=== PATIENT | male | born 1970 | race Caucasian/White ===

== ENCOUNTER 2019-01-02 01:56 | Emergency (ER) | payer MEDICAID ==
[2019-01-02] MEDS ORDERED: CEFTRIAXONE INJ 250 MG VIAL IM ONE (02:01)
[2019-01-02] MEDS ORDERED: AZITHROMYCIN 250 MG TABLET PO ONE (02:02)
--- NOTE | 2019-01-02 02:06 | ER Document Report ---
HPI - HPI Patient complains to provider of: dysuria Time Seen by Provider: 01/02/19 02:01 Context: Pt. is a 48 yo male presents the emergency department with dysuria. States a few days ago he had one episode of dysuria but that has since ceased. States his girlfriend is in the emergency department because she has recurrent sore throats. I have discussed with him potential that he is passing gonorrhea [id number]-mxq-mzpzs between him and his partner. Patient is wishing for gonorrhea and Chlamydia testing at this time. Patient's denying any testicular pain, swelling, penile discharge. Past Medical History - General Information source: Patient - Social History Smoking Status: Unknown if Ever Smoked Family History: Reviewed & Not Pertinent - Past Medical History Cardiac Medical History: Denies: Hx Coronary Artery Disease, Hx Heart Attack, Hx Hypertension Pulmonary Medical History: Denies: Hx Asthma, Hx Bronchitis, Hx COPD, Hx Pneumonia Neurological Medical History: Denies: Hx Cerebrovascular Accident, Hx Seizures Renal/ Medical History: Denies: Hx Peritoneal Dialysis Musculoskeletal Medical History: Denies Hx Arthritis Psychiatric Medical History: Reports: Hx Depression Past Surgical History: Reports: Hx Orthopedic Surgery - hip - Immunizations Hx Diphtheria, Pertussis, Tetanus Vaccination: Yes - "Im up to date on my Tetanus" Vertical Provider Document - CONSTITUTIONAL Agree With Documented VS: Yes Notes: GENERAL: Alert, interacts well. No acute distress. HEAD: Normocephalic, atraumatic. EYES: Pupils equal, round, and reactive to light. Extraocular movements intact. ENT: Oral mucosa moist, tongue midline. NECK: Full range of motion. Supple. Trachea midline. LUNGS: Clear to auscultation bilaterally, no wheezes, rales, or rhonchi. No respiratory distress. HEART: Regular rate and rhythm. No murmur ABDOMEN: Soft, non-tender. Non-distended. Bowel sounds present in all 4 quadrants. EXTREMITIES: Moves all 4 extremities spontaneously. No edema, normal radial and dorsalis pedis pulses bilaterally. No cyanosis. BACK: no cervical, thoracic, lumbar midline tenderness. No saddle anesthesia, normal distal neurovascular exam. NEUROLOGICAL: Alert and oriented x3. Normal speech. cranial nerves II through XII grossly intact PSYCH: Normal affect, normal mood. SKIN: Warm, dry, normal turgor. No rashes or lesions noted. Genitalia: Ignacio Candelario RN, bilateral testicles nonerythematous, nonswollen. No active discharge noted at the meatus. - INFECTION CONTROL TRAVEL OUTSIDE OF THE [place] IN LAST 30 DAYS: No Course - Re-evaluation Re-evalutation: 01/02/19 02:04 Patient was prophylactically treated for gonorrhea and chlamydia in the emergency department. Discussed close follow-up with primary care provider and [facility] for testing results. Patient voices understanding, stable for discharge. Discharge - Discharge Clinical Impression: Dysuria Condition: Stable Disposition: HOME, SELF-CARE Instructions: Chlamydia ([facility]), Gonorrhea ([facility]) Additional Instructions: As we discussed you have been seen and treated in the emergency department for pain while urinating. Your gonorrhea and Chlamydia testing takes hours to come back so we will not keep you in the emergency department. We have prophylactically treated you with 2 different antibiotics. Please make sure you follow-up with your primary care provider in the health district for continued care. Please return to the emergency room for any concerns. Referrals: ONOFRE PICKERING PA-C [NO LOCAL MD] - Follow up as needed [facility] [NO LOCAL MD] - Follow up as needed
[2019-01-02 02:33] VITALS: BP 150/79
[2019-01-02 03:04] LABS: APPEARANCE,URINE CLEAR; BILIRUBIN,URINE NEGATIVE (NEGATIVE); COLOR,URINE STRAW; GLUCOSE, URINE NEGATIVE (NEGATIVE); KETONES,URINE NEGATIVE (NEGATIVE); LEUKOCYTE ESTERASE,URINE NEGATIVE (NEGATIVE); NITRITE,URINE NEGATIVE (NEGATIVE); PROTEIN,URINE NEGATIVE (NEGATIVE); URINE SPECIFIC GRAVITY 1.003; UROBILINOGEN,URINE NEGATIVE mg/dL (<2.0)
[2019-01-02 04:36] LABS: CHLAM PCR NOT DETECTED (NOT DETECT)
== END 2019-01-02 02:42 | disposition home or self-care (01) ==
LOC: ER 01:56
DX: R30.0 Dysuria (principal); Z20.2 Contact with and (suspected) exposure to infections with a predominantly sexual mode of transmission
CPT/HCPCS: 99283; 96372; 87086; 81001; 87491; 87591; Q0144; J0696

== ENCOUNTER 2020-05-27 12:05 | Day surgery (SDC) | payer MEDICAID ==
[~2020-05-27 12:05] MED LIST: ACETAMINOPHEN 1,000 MG/100 ML RTUPB IV PRN; IBUPROFEN 800 MG in NORMAL SALINE 250 ML IV PRN; METRONIDAZOLE 500 MG/NS RTU 500 MG/100 ML RTUPB IV PRN
[2020-05-27] MEDS ORDERED: ACETAMINOPHEN 1,000 MG/100 ML RTUPB IV ONE (12:56)
[2020-05-27] MEDS ORDERED: METRONIDAZOLE 500 MG/NS RTU 500 MG/100 ML RTUPB IV ONE (12:57)
[2020-05-27 13:49] LABS: HEMATOCRIT 44.2 % (37.9-51.0); HEMOGLOBIN 15.4 g/dL (13.5-17.0); MEAN CORPUSCULAR HGB CONC 34.8 g/dL (32.0-36.0); MEAN CORPUSCULAR VOLUME 86 fl (80-97); PLATELET COUNT 162 10^3/uL (150-450); RED BLOOD COUNT 5.12 10^6/uL (4.35-5.55); RED CELL DISTRIBUTION WIDTH 13.6 % (11.5-14.0); WHITE BLOOD COUNT 9.7 10^3/uL (4.0-10.5)
[2020-05-27 14:17] LABS: ANION GAP 9 (5-19); BLOOD UREA NITROGEN 12 mg/dL (7-20); CALCIUM 9.3 mg/dL (8.4-10.2); CARBON DIOXIDE 28 mmol/L (22-30); CHLORIDE 103 mmol/L (98-107); GLUCOSE 90 mg/dL (75-110); POTASSIUM 4.4 mmol/L (3.6-5.0)
[2020-05-27] MEDS ORDERED: FENTANYL CITRATE INJ/PF 250 MCG/5 ML AMPULE ONE (14:32)
[2020-05-27] MEDS ORDERED: MIDAZOLAM 2 MG/2 ML INJ ONE (14:32)
[2020-05-27] MEDS ORDERED: EPHEDRINE SULFATE INJ 50 MG/1 ML AMPULE ONE (14:33)
[2020-05-27] MEDS ORDERED: PROPOFOL INJ 200 MG/20 ML VIAL IV ONE (14:33)
[2020-05-27] MEDS ORDERED: SUGAMMADEX SODIUM 200 MG/2 ML SDV IV ONE (14:33)
[2020-05-27] MEDS ORDERED: DEXAMETHASONE SOD PHOSPHATE INJ 4 MG/1 ML VIAL ONE (14:36)
[2020-05-27] MEDS ORDERED: SUCCINYLCHOLINE CHLORIDE INJ 200 MG/10 ML VIAL ONE (14:36)
[2020-05-27] MEDS ORDERED: ROCURONIUM BROMIDE INJ 50 MG/5 ML VIAL IV ONE (14:36)
[2020-05-27] MEDS ORDERED: METOCLOPRAMIDE HCL INJ/PF 10 MG/2 ML SDV ONE (14:36)
[2020-05-27] MEDS ORDERED: ONDANSETRON HCL INJ/PF 4 MG/2 ML SDV ONE (14:36)
[2020-05-27] MEDS ORDERED: LIDOCAINE 2% JELLY 30 ML TUBE ONE (14:41)
[2020-05-27] MEDS ORDERED: BACITRACIN ZINC OINTMENT 15 GM ONE (14:41)
[2020-05-27] MEDS ORDERED: BUPIVACAINE INJ/PF LIPOSOME/PF 266 MG/20 ML SDV ONE (14:41)
--- NOTE | 2020-05-27 15:14 | EKG REPORT ---
SEVERITY:- NORMAL ECG - SINUS RHYTHM : Confirmed by: Keena Brooks MD 27-May-2020 15:13:17
[2020-05-27] MEDS ORDERED: MEPERIDINE HCL/PF INJ 25 MG/1 ML DISP.SYRIN IV PRN (15:26)
[2020-05-27] MEDS ORDERED: PROMETHAZINE HCL INJ 25 MG/1 ML VIAL IV PRN ×2 (15:26)
[2020-05-27] MEDS ORDERED: FENTANYL CITRATE INJ/PF 100 MCG/2 ML AMPUL IV PRN ×3 (15:26)
[2020-05-27] MEDS ORDERED: MORPHINE SULFATE 10 MG/ML INJ IV PRN (15:26)
[2020-05-27] MEDS ORDERED: DIPHENHYDRAMINE HCL 50 MG/ML VIAL IV PRN (15:26)
[2020-05-27] MEDS ORDERED: OXYCODONE-ACETAMINOPHEN 5-325 MG TABLET PO PRN ×2 (15:26)
--- NOTE | 2020-05-27 16:00 | Discharge Summary ---
Discharge Summary (SDC) - Discharge Final Diagnosis: #1 infected sebaceous cyst of the perianal region. 2. 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 Diet as tolerated. Activity: Nonstrenuous. Follow-up with [facility] in 7 to 10 days. [place] 10/325 mg p.o. every 6 hours as needed for pain. Ibuprofen 800 mg p.o. 3 times daily with meals. 5% lidocaine ointment/cream, apply to rectum 3 times daily. Neosporin ointment (mufr-xku-rhwcebj) apply to rectum 3 times daily. Soak rectum and buttocks in warm soapy water 3 times daily and after bowel movements. Colace (voqp-wsd-iihegan) 1 tablet p.o. twice daily. Fiber supplement (gjll-ohk-jjgqlen, like Metamucil or Benefiber) 1 tablespoon p.o. twice daily. Okay to shower or bathe. Prescriptions: Hydrocodone/Acetaminophen [[place] 10-325 mg Tablet] 1 tab PO Q6HP PRN #28 tablet PRN Reason: Referrals: MAURIZIO MCKEON PA-C [Primary Care Provider] - Discharge Diet: As Tolerated Respiratory Treatments at Home: Deep Breathing/Coughing, Incentive Spirometer Discharge Activity: Balance Activity w/Rest Home Care Assistance: None Needed Report the Following to Your Physician Immediately: Shortness of Breath, Nausea, Vomiting, Increase in Pain, Yellow Skin, Fever over 101 Degrees, Unusual Bleeding, Redness
--- NOTE | 2020-05-27 16:10 | Operative Report ---
Nonrecallable Operative Report DATE OF SURGERY: 05/27/20 PREOPERATIVE DIAGNOSIS: Perirectal pain and drainage POSTOPERATIVE DIAGNOSIS: 1. 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 2. Right lateral perianal infected sebaceous cyst OPERATION: 1. Endorectal advancement flap. 2. Excision of 1 cm sebaceous cyst of the perianal skin SURGEON: KAPIL TORO 1ST ENDOSCOPY TECH: ALEE OROZCO ANESTHESIA: GA TISSUE REMOVED OR ALTERED: None COMPLICATIONS: None apparent ESTIMATED BLOOD LOSS: Minimal PROCEDURE: Drains/implants: None. Procedure in detail: After informed consent was obtained from the patient, he was brought into the operating room and laid in the prone jackknife position. The area of the anus and rectum were prepped and draped in a normal sterile fashion. An anal block was created with Exparel. After the anal block, Bert- Ana Maria retractor was inserted into the anus. There was a small opening at the 1 o'clock position on the external anal skin. Peroxide was injected into the opening, and was seen to course into the rectum posteriorly, at approximately the 11 o'clock position. This confirmed a fistula in ano. An area of induration was also present at the 3 o'clock position (on the right). This area was inspected. A small opening was identified, and injected with peroxide. A small cavity filled with peroxide, and exited a small pit within the skin (inferior to the previous opening, but still on the perianal skin). This was felt to represent a sebaceous cyst of the perianal skin, with a tunneling sinus. No internal fistulous opening could be identified for the 3:00 lesion. Attention was then turned to excision of the 3:00 perianal lesion. The area of the perianal skin was laid open at the 3 o'clock position. Hypertrophic granulation tissue was found within the small subcutaneous cavity. This was curetted and cauterized. No other fistulization could be identified in this region. Attention was then turned to the posterior anorectal fistula. The opening at the 1 o'clock position was probed with a #4 lacrimal probe. The fistula tract was large, and exited into the rectum at approximately the 11 o'clock position. The fistula was found to traverse the sphincter complex. The external portion of the fistula tract was laid opened, down to the sphincter complex. This was done in a way to spare the sphincter complex from injury. Next, the mucosa overlying the internal opening was opened. The internal opening was completely excised, leaving a defect apparent. The defect in the musculature was closed in the deep tissues using 3-0 Vicryl suture in blmoju-sa-bkaxd fashion. Next, healthy mucosa was brought over top of the opening, after being mobilized in endorectal advancement flap fashion. The mucosa was reapproximated using 3-0 Vicryl suture in interrupted rfnmxs-ow-caage fashion. The external portion of the fistula tract was left open. A dressing was placed using 4 x 4's, lidocaine ointment, and bacitracin. The procedure was at this time concluded. All sponge, instrument, and needle counts were correct x2. Condition: Stable. Alee Orozco PA-C was scrubbed and present the entirety of the procedure. She assisted with all portions of the procedure including identification of the fistula, excision of the sebaceous cyst, performing of the endorectal advancement flap.
[2020-05-27 17:54] VITALS: BP 150/94
--- NOTE | 2020-05-27 18:03 | RADIOLOGY REPORT (SQ) ---
EXAM DESCRIPTION: CHEST SINGLE VIEW IMAGES COMPLETED DATE/TIME: 05/27/2020 1:03 pm REASON FOR STUDY: PRE OP COMPARISON: None. EXAM PARAMETERS: NUMBER OF VIEWS: One view. TECHNIQUE: Single frontal radiographic view of the chest acquired. RADIATION DOSE: NA LIMITATIONS: None. FINDINGS: LUNGS AND PLEURA: No opacities, masses or pneumothorax. No pleural effusion. MEDIASTINUM AND HILAR STRUCTURES: No masses. Contour normal. HEART AND VASCULAR STRUCTURES: Heart normal in size. Normal vasculature. BONES: No acute findings. HARDWARE: None in the chest. OTHER: No other significant finding. IMPRESSION: NO ACUTE RADIOGRAPHIC FINDING IN THE CHEST. TECHNICAL DOCUMENTATION: JOB ID: [id number] 2010 [employer]- All Rights Reserved Reading location - IP/workstation name: [email or web address]
== END 2020-05-27 17:30 | disposition home or self-care (01) ==
LOC: OROUT 12:05
PROVIDERS: ATTEND Surgery
DX: K60.3 Anal fistula (principal); L72.3 Sebaceous cyst; G89.29 Other chronic pain; I10 Essential (primary) hypertension; K21.9 Gastro-esophageal reflux disease without esophagitis; F43.10 Post-traumatic stress disorder, unspecified; E66.9 Obesity, unspecified; F12.90 Cannabis use, unspecified, uncomplicated; Z20.828 Contact with and (suspected) exposure to other viral communicable diseases; Z79.899 Other long term (current) drug therapy; F17.210 Nicotine dependence, cigarettes, uncomplicated
CPT/HCPCS: 36415; 85027; 87635; 80048; 71045; 93005; 93010; 00902; 14000; 46922; J2250; J3490 ×4; J1100; J3010; J2765; J0330; J2405; J7050; J2704; J0131; C9290; J1741; C9803; 902